=== PATIENT | female | born 1930 | race Caucasian/White ===

== ENCOUNTER 2017-12-03 16:08 | Inpatient (IN) | payer OTHER, MEDICAID ==
[~2017-12-03] VITALS: Ht 149.9 cm; Wt 63.2 kg
[2017-12-03 16:17] VITALS: Ht 149.9 cm; Wt 63.2 kg
[2017-12-03 18:05] LABS: BASOPHIL % 0.9 % (0-2); PLATELET COUNT 231 x10^3mcL (130-400); RED CELL DISTRIBUTION WIDTH 13.4 % (11.5-14.5)
[2017-12-03 18:10] LABS: CALCIUM 8.9 mg/dL (8.5-10.1); CHLORIDE SERUM 101 mmol/L (98-107); CREATININE SERUM 0.9 mg/dL (0.6-1.0); GLUCOSE SERUM 104 mg/dL (74-106); POTASSIUM SERUM 3.9 mmol/L (3.5-5.1); SODIUM SERUM 135 mmol/L (136-145)
[2017-12-03 18:15] LABS: ALBUMIN 3.8 g/dL (3.4-5.0); ALKALINE PHOSPHATASE 104 U/L (46-116); ALT/SGPT 21 U/L (14-59); AST/SGOT 22 U/L (15-37); BILIRUBIN TOTAL 0.8 mg/dL (0.20-1.00); TOTAL PROTEIN, SERUM 7.6 g/dL (6.4-8.2)
[2017-12-03] MEDS ORDERED: LOSARTAN POTASS25 M1 PO (18:50)
[2017-12-03] MEDS ORDERED: MASON NATURAL1000 IU PO (18:51)
[2017-12-03 19:11] LABS: microscopic required? YES; urine erythrocyte 1+ (NEGATIVE)
[2017-12-03 19:51] VITALS: BP 186/65
[2017-12-03 21:18] LABS: T3 TOTAL 0.77 ng/mL
[2017-12-03 21:20] LABS: MAGNESIUM 2.1 mg/dL (1.8-2.4); PHOSPHOROUS 3.3 mg/dL (2.5-4.9)
[2017-12-03 21:21] LABS: CHOLESTEROL/HDL RATIO 2.7
[2017-12-03 21:28] LABS: FREE T4 1.04 ng/dL (0.76-1.46); FREE THYROXINE INDEX 2.9 ug/dL (1.4-4.5); T4(THYROXINE) 8.5 ug/dL (4.7-13.3)
[2017-12-03 23:29] VITALS: BP 130/53
[2017-12-04 05:21] VITALS: BP 131/50
[2017-12-04 05:49] LABS: PLATELET COUNT 200 x10^3mcL (130-400); RED CELL DISTRIBUTION WIDTH 13.3 % (11.5-14.5)
[2017-12-04 06:09] LABS: CALCIUM 8.1 mg/dL (8.5-10.1); CARBON DIOXIDE 24.1 mmol/L (21-32); CHLORIDE SERUM 103 mmol/L (98-107); CREATININE SERUM 0.8 mg/dL (0.6-1.0); GLUCOSE SERUM 110 mg/dL (74-106); MAGNESIUM 1.9 mg/dL (1.8-2.4); PHOSPHOROUS 3.4 mg/dL (2.5-4.9); POTASSIUM SERUM 4.1 mmol/L (3.5-5.1); SODIUM SERUM 137 mmol/L (136-145)
[2017-12-04 08:40] VITALS: BP 130/51
[2017-12-04 12:41] VITALS: BP 149/55
[2017-12-04 16:58] VITALS: BP 145/81
[2017-12-04 21:13] VITALS: BP 110/65
[2017-12-05] VITALS (7 sets, daily range): BP systolic 129–174; BP diastolic 52–73
[2017-12-05 06:30] LABS: BASOPHIL % 0.6 % (0-2); PLATELET COUNT 190 x10^3mcL (130-400); RED CELL DISTRIBUTION WIDTH 13.3 % (11.5-14.5)
[2017-12-05 06:49] LABS: CALCIUM 8.4 mg/dL (8.5-10.1); CARBON DIOXIDE 22.1 mmol/L (21-32); CHLORIDE SERUM 101 mmol/L (98-107); CREATININE SERUM 0.7 mg/dL (0.6-1.0); GLUCOSE SERUM 109 mg/dL (74-106); MAGNESIUM 1.9 mg/dL (1.8-2.4); PHOSPHOROUS 3.3 mg/dL (2.5-4.9); POTASSIUM SERUM 3.7 mmol/L (3.5-5.1); SODIUM SERUM 134 mmol/L (136-145)
[2017-12-06 04:52] VITALS: BP 147/65
[2017-12-06 06:28] LABS: CALCIUM 7.7 mg/dL (8.5-10.1); CARBON DIOXIDE 24.6 mmol/L (21-32); CHLORIDE SERUM 97 mmol/L (98-107); CREATININE SERUM 0.7 mg/dL (0.6-1.0); GLUCOSE SERUM 131 mg/dL (74-106); MAGNESIUM 1.8 mg/dL (1.8-2.4); PHOSPHOROUS 3.3 mg/dL (2.5-4.9); POTASSIUM SERUM 4.1 mmol/L (3.5-5.1); SODIUM SERUM 132 mmol/L (136-145)
[2017-12-06 06:48] LABS: BASOPHIL % 1.5 % (0-2); PLATELET COUNT 189 x10^3mcL (130-400); RED CELL DISTRIBUTION WIDTH 13.3 % (11.5-14.5)
[2017-12-06 09:46] VITALS: BP 179/68
[2017-12-06 13:22] VITALS: BP 157/65
[2017-12-06 17:15] VITALS: BP 157/65
[2017-12-06 17:27] VITALS: BP 130/59
[2017-12-06 20:45] VITALS: BP 167/73
[2017-12-07 05:41] VITALS: BP 158/68
[2017-12-07 06:58] LABS: BASOPHIL % 0.7 % (0-2); PLATELET COUNT 191 x10^3mcL (130-400); RED CELL DISTRIBUTION WIDTH 13.1 % (11.5-14.5)
[2017-12-07 07:06] LABS: CALCIUM 8.5 mg/dL (8.5-10.1); CARBON DIOXIDE 24.5 mmol/L (21-32); CHLORIDE SERUM 98 mmol/L (98-107); CREATININE SERUM 0.6 mg/dL (0.6-1.0); GLUCOSE SERUM 105 mg/dL (74-106); PHOSPHOROUS 3.4 mg/dL (2.5-4.9); POTASSIUM SERUM 3.7 mmol/L (3.5-5.1); SODIUM SERUM 132 mmol/L (136-145)
[2017-12-07 09:09] VITALS: BP 158/52
[2017-12-07] MEDS ORDERED: COZ50 PO (09:58)
[2017-12-07] MEDS ORDERED: COUGH100 MG/5 M PO (09:58)
[2017-12-07] MEDS ORDERED: LEVAQUIN750 MG PO (09:59)
[2017-12-07] MEDS ORDERED: CLEOCIN HCL300 MG PO (09:59)
[2017-12-07] MEDS ORDERED: LAC PO (09:59)
[2017-12-07 12:56] VITALS: BP 153/63
[2017-12-07 13:38] VITALS: BP 158/52
== END 2017-12-07 15:29 | disposition home or self-care (01) | DRG 177 ==
LOC: ED 16:08 → DU 18:34 → MU 18:34 → DU 19:39 → MU 12-06 08:45
PROVIDERS: Emergency Medicine; Family Medicine; Student in an Organized Health Care Education/Training Program
DX: J69.0 Pneumonitis due to inhalation of food and vomit (principal); N17.0 Acute kidney failure with tubular necrosis; N39.0 Urinary tract infection, site not specified; E87.1 Hypo-osmolality and hyponatremia; I16.0 Hypertensive urgency; I10 Essential (primary) hypertension; E86.0 Dehydration; E11.65 Type 2 diabetes mellitus with hyperglycemia; K21.9 Gastro-esophageal reflux disease without esophagitis; M19.90 Unspecified osteoarthritis, unspecified site; E66.9 Obesity, unspecified; Z68.36 Body mass index [BMI] 36.0-36.9, adult; Z90.49 Acquired absence of other specified parts of digestive tract; Z88.1 Allergy status to other antibiotic agents; Z82.49 Family history of ischemic heart disease and other diseases of the circulatory system
CPT/HCPCS: 36600; 82962; 83880; 84439; 87804; J1956; J2405; J3490; J7030; J7620; Q0092